=== PATIENT | female | born 1990 | race Caucasian/White ===

== ENCOUNTER 2020-11-05 10:24 | Outpatient (CLI) | payer OTHER, SELFPAY ==
[2020-11-05 10:48] LABS: Basophils Percent Auto 0.4 % (0.2-1.2); Eosinophils Absolute Auto 0.1 K/mm3 (0-0.3); Eosinophils Percent Auto 1.5 % (0-4.4); Hematocrit 35.9 % (37.0-47.0); Immature Granulocyte Absolute 0.02 K/mm3 (0.00-0.031); Immature Granulocyte Percent A 0.2 % (0-0.5); Lymphocytes Percent Auto 26.8 % (18.3-44.2); Mean Corpuscular HGB Conc 33.4 g/dl (32-36); Mean Corpuscular Hemoglobin 29.4 pg (26-34); Mean Platelet Volume 10.2 fl (7.4-10.4); Monocytes Absolute Auto 0.4 K/mm3 (0.1-0.6); Monocytes Percent Auto 4.7 % (2.6-8.5); Neutrophils Absolute Auto 6.2 K/mm3 (1.3-6.7); Neutrophils Percent Auto 66.4 % (45.5-73.1); Platelet Count Result 356 k/mm3 (150-375); Red Blood Count 4.08 M/mm3 (4.2-5.4); White Blood Count 9.3 K/mm3 (4.5-10.0)
== END 2020-11-05 10:25 | disposition home or self-care (01) ==
PROVIDERS: PCP Nurse Practitioner Psychiatric/Mental Health; Visit Provider Surgery
DX: K62.5 Hemorrhage of anus and rectum (principal)
CPT/HCPCS: 36415; 85025

== ENCOUNTER 2023-01-04 00:33 | Day surgery (SDC) | payer OTHER, SELFPAY ==
[2022-12-22 14:37] VITALS: BMI 29.2
--- NOTE | 2022-12-22 14:48 | PC.NURSE ---
Report to the Outpatient Waiting Room, entrance under the green pavilion located off [facility], at 1200 on 01/04/23. Planned Procedure Time: 1400. Time changes happen often and if your time is changed the preop area will call you the afternoon before. - You and your visitor will be asked to self-screen and do not enter if you have any COVID symptoms. - Only one visitor is requested with a max of two and NO children visitors are allowed at this time. - The patient visitor may be requested to leave or wait in car when not with patient due to distancing restrictions. - A mask is optional within the hospital at this time. Patients may have clear liquids (water, carbonated beverages, clear teas, apple juice) until 3 hours prior to surgery with a maximum of 20 ounces. - No food from midnight until time of surgery Take the following medications with a SIP of water the morning of surgery: n/a DO NOT STOP ANY OF YOUR OTHER PRESCRIPTION MEDICATIONS PRIOR TO SURGERY ?EXCEPT THE FOLLOWING Medications to discontinue per physician n/a Date to take last dose n/a Please no make-up, nail mongolian, hairspray, perfume, deodorant, or body powder the day of surgery. No jewelry (including any body piercings) or valuables the day of surgery, leave them at home. Please take a shower or bath the night before, or the morning of, surgery with an antibacterial soap. Wear comfortable, loose fitting clothing. - Jewelry must be removed prior to entering the operating room. Rings and piercings that are not removed may be cut off. - The hospital will not accept responsibility for valuables. - Please leave all valuables, including medications, at home the day of surgery. If you are going home after surgery, a licensed coal tram driver must drive you home. - NO public transportation without another adult if you receive anesthesia. - We recommend that an adult stay with you for 24 hours following discharge. - We also recommend that you do not drive, make important decision, drink alcoholic beverages, or take any drugs that were not prescribed by your health care provider for at least 24 hours after your discharge time. Follow any additional instructions given to you from your surgeon. If you or anyone in your household have experienced Covid symptoms in the past week, please notify your surgeon or the nurse liaison at the phone number below for possible testing. Telephone instructions given to patient and asked if any additional questions and then verbalized understanding. Patient advised to call surgeon office or pre surgery nurse liaison [phone] if any additional questions.
--- NOTE | 2023-01-03 17:16 | P.HP_ITS ---
H&P: HPI History of Present Illness Date/Time: 01/03/23 17:16 Chief Complaint: Nasal obstruction nasal congestion septal deviation turbinate hypertrophy Narrative: planned surgical procedure Review of Systems Review of Systems: All systems reviewed & are unremarkable except as noted in HPI and below [facility] Past Medical History Medical History No pertinent past medical history Surgical History Surgical History History of arthroplasty of left knee History of tubal ligation [place] teeth removed Family History Family History Mother Hypertension Other Breast cancer Social History Social History (Updated 11/09/22 @ 08:06 by Briseyda Navarro CMA) Smoking status: Never smoker Tobacco type: cigarettes Additional smoking assessment comments: as a teen briefly Alcohol intake: never Substance use: never Lack of Transportation: No Lack of Food: Never True Current Housing: I Have Housing Concerned About Future Housing: No Difficulty Paying Gas/Electric Bills: No Difficulty Paying for Meds: No Currently Unemployed: No Education: High School Diploma/GED Difficulty w/ Childcare or Family Care: No Living arrangements: with family 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 Spiritual care concerns: No Meds Home Medications and Allergies Home Medications Medication Instructions Recorded Confirmed Type No Home Medications 12/22/22 12/22/22 History Allergies Allergy/AdvReac Type Severity Reaction Status Date / Time No Known Allergies Allergy Verified 12/22/22 14:35 Exam Narrative: septal deviation turbinate hypertrophy Assessment and Plan Assessment and plan (1) Hypertrophy of both inferior nasal turbinates: Code(s): J34.3 - Hypertrophy of nasal turbinates Status: Acute Assessment and Plan: Plan OR for ?for right-sided maxillary antrostomy non image guided no tissue removal diagnosis maxillary sinusitis as well as septoplasty endoscopic assisted and inferior turbinate reduction with outfracture? (2) Nasal septal deviation: Code(s): J34.2 - Deviated nasal septum Status: Acute (3) Nasal congestion: Code(s): R09.81 - Nasal congestion Status: Acute (4) Nasal obstruction: Code(s): J34.89 - Other specified disorders of nose and nasal sinuses Status: Acute (5) Mucous retention cyst of maxillary sinus: Code(s): J34.1 - Cyst and mucocele of nose and nasal sinus Status: Acute (6) Chronic sinusitis: Code(s): J32.9 - Chronic sinusitis, unspecified Status: Acute
[2023-01-04] VITALS (7 sets, daily range): BP systolic 93–121; BP diastolic 57–76; PULSE 62–82; RESP 12–19; TEMP 36.2–36.8; O2SAT 100
--- NOTE | 2023-01-04 07:14 | WPDHPUPDATE1 ---
History and Physical Update Update Date/Time: 01/04/23 07:14 History and Physical has been reviewed, including an updated exam of the patient. There are NO changes in the patient's condition. Risks, benefits, and alternatives have been discussed and questions answered. Patient agrees to proceed with procedure.
[2023-01-04] MEDS: LACTATED RINGERS 1,000 ML 30 ML IV CONT ×2 (09:26→14:33)
[2023-01-04] MEDS: SCOPOLAMINE 1.5 MG PATCH TRANSDERM (09:27)
[2023-01-04] MEDS: ACETAMINOPHEN 500 MG TABLET 1000 MG PO (09:27)
--- NOTE | 2023-01-04 09:52 | WPDANESEPPF ---
Anes - Initial Pre Proc Eval Procedure: Operation Date: 01/04/23 11:00 Proposed Procedures p Right Maxillary Antrostomy without Tissue Removal, Bilateral Inferior Turbinectomy with Outfracture, - Juvencio Davalos MD s Endoscopic Septoplasty - Juvencio Davalos MD Date/Time: 01/04/23 09:52 Surgeon: Juvencio Davalos MD Pre Op Diagnosis: maxillary sinusitis Patient Data Age: 32 Gender: F Height: 1.5 m Weight: 67.8 kg Last Vital Signs Temp 36.8 C 01/04/23 09:12 Pulse 75 01/04/23 09:12 Resp 18 01/04/23 09:12 BP 104/64 01/04/23 09:12 Pulse Ox 100 01/04/23 09:12 O2 Del Method Room Air 01/04/23 09:12 Allergies Allergy/AdvReac Type Severity Reaction Status Date / Time No Known Allergies Allergy Verified 01/04/23 09:10 Home Medications Medication Instructions Recorded Confirmed Type No Home Medications 12/22/22 01/04/23 History Patient hx anesthesia problems: none Family hx anesthesia problems: none Results Review: All pre-operative results and documents have been reviewed as part of the pre-operative evaluation. [facility] Past Medical History Medical History No pertinent past medical history Surgical History Surgical History History of arthroplasty of left knee History of tubal ligation [place] teeth removed Family History Family History Mother Hypertension Other Breast cancer Social History Social History Smoking status: Never smoker Tobacco type: cigarettes Additional smoking assessment comments: as a teen briefly Alcohol intake: never Substance use: never Lack of Transportation: No Lack of Food: Never True Current Housing: I Have Housing Concerned About Future Housing: No Difficulty Paying Gas/Electric Bills: No Difficulty Paying for Meds: No Currently Unemployed: No Education: High School Diploma/GED Difficulty w/ Childcare or Family Care: No Living arrangements: with family 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 Informed Consent: The patient's anesthetic plan and its attendant risks and benefits were discussed with the patient/family/POA. Questions were solicited and answers provided to the satisfaction of the patient/family/POA.
--- NOTE | 2023-01-04 10:59 | SUR.PREOP ---
PT AND FAMILY UPDATED ABOUT SURGICAL TIME DELAY. DENIES NEEDS AT THIS TIME.
--- NOTE | 2023-01-04 12:07 | SUR.PREOP ---
PT AND FAMILY UPDATED ON CONTINUED DELAY IN SURGERY TIME, DENIES NEEDS.
[2023-01-04] MEDS: ceFAZolin 2 GM/D5W 50 ML 2 GM/50 ML BAG IVPB (12:56)
[2023-01-04] MEDS: OXYMETAZOLINE HCL 0.05% NAS 15 ML BTL (*BKC) 1 SPRAY NASAL (13:21)
[2023-01-04] MEDS: MUPIROCIN 2% OINT 22 GM TUBE 1 APPLIC EACH NARE (14:19)
[2023-01-04] MEDS: LIDO 1%/EPINEPHRINE 1:100,000 20 ML VIAL 10 ML INFILTRATE (14:20)
--- NOTE | 2023-01-04 17:02 | W.PM.PROC2 ---
Procedure Note - Detailed Date of Procedure 01/04/23 Pre-op Diagnosis Septal deviation turbinate hypertrophy nasal obstruction nasal congestion Post-op Diagnosis Same Procedure Performed endoscopic assisted septoplasty inferior turbinate submucosal reduction with outfracture Surgeon Juvencio Davalos MD Anesthesia General Indications see above Findings copious amounts rhinorrhea incredibly erythematous vascular bloody edematous mucosa deviated septum and turbinates fixed well reduced patient tolerated the procedure well. Description of Procedure Patient identified consent patient brought operating room time-out per general anesthesia induced endotracheal tube secured. Patient prepped draped position 2nd time-out performed. Afrin-soaked pledgets placed in bilateral nasal passages allowed to sit for 5 minutes and removed. Mucosa incredibly boggy edematous rhinorrhea super allergic type appearance. 10 cc 1% lidocaine 1 100,000 parts epinephrine injected in the bilateral nasal septum and inferior turbinates inferior turbinates reduced submucosal plane with microdebrider inverted trauma to the surrounding mucosa outfractured septum [place] incision made left-sided left nasal septal flap elevated no tears right nasal septal flap elevated no tears deviated septum removed combination Tim Terrazaston forceps Zeyad forceps osteotome. Bilateral nasal passages suction [place] incision closed 3 interrupted 5 0 fast gut sutures. [place] splints placed covered in mupirocin mattress sutured anteriorly using 3-0 nylon suture patient tolerated the procedure well total blood loss 25 cc. I was unable to perform the maxillary antrostomy given how much blood clear rhinorrhea and edematous tissue there was. Will have to bring her back for the procedure. Estimated Blood Loss 25 Drains No Packing No Complications No immediate complications Condition Stable Disposition PACU [facility] Billing Surgery - Charge Forward: Surgery Billing
== END 2023-01-04 16:41 | disposition home or self-care (01) ==
PROVIDERS: Visit Provider Otolaryngology
PROC: (CPT 30520; principal; 2023-01-04 11:00)
PROC: (CPT 30520; 2023-01-04 11:00)
DX: J34.2 Deviated nasal septum (principal); J34.3 Hypertrophy of nasal turbinates; J34.89 Other specified disorders of nose and nasal sinuses; R09.81 Nasal congestion; E66.9 Obesity, unspecified; Z68.30 Body mass index [BMI] 30.0-30.9, adult; J32.9 Chronic sinusitis, unspecified
CPT/HCPCS: 30520; 30140; A9270; J0330; J0690; J1100; J2250; J2405; J2704; J3010; J7120